=== PATIENT | female | born 1980 | race Caucasian/White ===

== ENCOUNTER → 2017-08-27 | Outpatient (CLI) | payer OTHER | END | disposition home or self-care (01) | LOC: RADECHMAIN 12:55 | PROVIDERS: ATTEND Internal Medicine | DX: R00.2 Palpitations (principal) | CPT/HCPCS: 93270; 93271 ==

== ENCOUNTER 2018-12-30 14:53 | Emergency (ER) | payer OTHER ==
[2018-12-30 15:02] VITALS: TEMP 98.2
[2018-12-30] MEDS ORDERED: PROPARACAINE 0.5% OPHTH DROPS 15 ML BTL LEFT EYE STA (15:21)
--- NOTE | 2018-12-30 15:23 | ED ---
General Adult HPI - General Chief complaint: Eye Problems Stated complaint: Eye pain, headache Time Seen by Provider: 12/30/18 15:09 Source: patient, RN notes reviewed, old records reviewed Mode of arrival: ambulatory Limitations: no limitations - History of Present Illness Initial comments: 38 old female patient past medical history of hypertension presents to ED with 1 day of erythematous, painful left eye. Patient states that she woke up and noticed that she had some dry crust rim of eye. Patient additionally states that she does have some pain and irritation of her left eye. Patient states that she has had some eye watering. Patient denies all other complaints. Patient has chest pain, shortness breath, abdominal pain, nausea vomiting diarrhea, fever or chills. Systemic: Pt denies fatigue, myalgia, fever/chills, rash. Pt denies weakness, night sweats, weight loss. Neuro: Pt denies headache, visual disturbances, syncope or pre-syncope. HEENT: Pt denies otalgia, rhinorrhea, pharyngitis or notable lymphadenopathy. Cardiopulmonary: Pt denies chest pain, SOB, heart palpitations, dyspnea on exertion. Abdominal/GI: Pt denies abdominal pain, n/v/d. : Pt denies dysuria, burning w/ urination, frequency/urgency. Denies new onset urinary or bowel incontinence. MSK: Pt denies myalgia, loss of strength or function in extremities. Neuro: Pt denies new onset weakness, paresthesias. - Related Data Previous Rx's Medication Instructions Recorded Acetaminophen with Codeine 1 tab PO Q4H PRN #15 tab 02/29/16 [Tylenol w/codeine #3] Ondansetron Odt [Zofran Odt] 4 mg PO Q8HR PRN #12 tab 02/29/16 amLODIPine [Norvasc] 5 mg PO DAILY #15 02/29/16 Orphenadrine [Norflex] 100 mg PO Q12H #10 tablet.er 11/04/16 amLODIPine BESYLATE [Norvasc] 5 mg PO DAILY #30 tab 11/04/16 Erythromycin Ophth Oint [Romycin 1 applic BOTH EYES QID 7 Days #1 12/30/18 Ophth Oint] tube Allergies Allergy/AdvReac Type Severity Reaction Status Date / Time Penicillins Allergy Nausea & Verified 01/29/19 15:02 Vomiting Review of Systems ROS Statement: Those systems with pertinent positive or pertinent negative responses have been documented in the HPI. ROS Other: All systems not noted in ROS Statement are negative. Past Medical History Past Medical History: Hypertension Additional Past Medical History / Comment(s): back issues states "mass between L4 and L5", spinal stenosis History of Any Multi-Drug Resistant Organisms: None Reported Past Surgical History: Appendectomy, Section, Cholecystectomy Additional Past Surgical History / Comment(s): nose, uterine ablasion Past Psychological History: No Psychological Hx Reported Smoking Status: Current every day smoker Past Alcohol Use History: None Reported Past Drug Use History: None Reported General Exam - General Exam Comments Initial Comments: Constitutional: NAD, AOX3, Pt has pleasant affect. HEENT: NC/AT, trachea midline, neck supple, no lymphadenopathy. Posterior pharynx non erythematous, without exudates. External ears appear normal, without discharge. Mucous membranes moist. Eyes PERRLA, EOM intact. Mild injection of L eye, no purulent drainge noted. No uptake noted on fluorescence stain and Wood's lamp exam. No pallor noted. Cardiopulmonary: RRR, no murmurs, rubs or gallops, no JVD noted. Lungs CTAB in anterior and posterior logan. No peripheral edema. Abdominal exam: Abdomen soft and non-distended. Abdomen non-tender to palpation in all 4 quadrants. Bowel sounds active in LLQ. No hepatosplenomegaly. No ecchymosis Neuro: CN II-XII intact. No nuchal rigidity. No focal deficit or facial droop. MSK: No posterior calf tenderness bilaterally, homans sign negative bilaterally. Posterior tibialis and radial pulse +2 bilaterally. Sensation intact in upper and lower extremities. Full active ROM in upper and lower extremities, 5/5 stregnth. Limitations: no limitations Course Vital Signs 12/30/18 12/30/18 14:59 16:26 Temperature 98.2 F Pulse Rate 97 84 Respiratory 20 18 Rate Blood Pressure 176/103 151/88 O2 Sat by Pulse 95 99 Oximetry Medical Decision Making - Medical Decision Making 38 old female patient past medical history of hypertension presents to ED with 1 day of erythematous, painful left eye. Patient states that she woke up and noticed that she had some dry crust rim of eye. Patient additionally states that she does have some pain and irritation of her left eye. Patient states that she has had some eye watering. Patient denies all other complaints. Pt had mild hypertension upon presentation likely 2/2 pain, improved after proparicaine and exam. Physical exam displayed: CN II-XII intact. No nuchal rigidity. No focal deficit or facial droop. Eyes PERRLA, EOM intact. Mild injection of L eye, no purulent drainge noted. No uptake noted on fluorescence stain and Wood's lamp exam. Patient diagnosed with conjunctivitis. Patient prescribed topical erythromycin antibiotics use for 1 week. Patient to follow up with primary care provider in 1-2 days. Patient to return to ED if new signs or symptoms develop or if condition worsens in anyway. Case discussed in depth with and seen by Dr. Hammer. Disposition Clinical Impression: Conjunctivitis Disposition: HOME SELF-CARE Condition: Stable Instructions (If sedation given, give patient instructions): Conjunctivitis (ED ) Additional Instructions: Patient to adhere to previously discussed treatment plan and will take medication(s) as directed. Patient to follow up with PCP in 1-2 days. Patient to return to ED if symptoms do not improve. Prescriptions: Erythromycin Ophth Oint [Romycin Ophth Oint] 1 applic BOTH EYES QID 7 Days #1 tube Is patient prescribed a controlled substance at d/c from ED?: No Referrals: Angel Mcgee MD [Primary Care Provider] - 1-2 days Time of Disposition: 16:33
[2018-12-30 16:26] VITALS: BP 151/88; PULSE 84; RESP 18
== END 2018-12-30 16:35 | disposition home or self-care (01) ==
LOC: EC 14:53
DX: H10.9 Unspecified conjunctivitis (principal); I10 Essential (primary) hypertension; F17.200 Nicotine dependence, unspecified, uncomplicated; Z88.0 Allergy status to penicillin
CPT/HCPCS: 99284

== ENCOUNTER → 2019-06-17 | Outpatient (CLI) | payer OTHER ==
[2019-06-17 11:35] LABS: Basophils # (A) 0.1 k/uL (0-0.2); Basophils % (A) 0 %; Eosinophils # (A) 0.2 k/uL (0-0.7); Eosinophils % (A) 2 %; HCT 39.6 % (34.0-46.0); HGB 13.2 gm/dL (11.4-16.0); Lymphocytes # (A) 2.4 k/uL (1.0-4.8); Lymphocytes % (A) 23 %; MCH 29.6 pg (25.0-35.0); MCHC 33.3 g/dL (31.0-37.0); MCV 88.9 fL (80.0-100.0); Mean Platelet Volume 7.2; Monocytes # (A) 0.5 k/uL (0-1.0); Monocytes % (A) 5 %; Neutrophils # (A) 7.2 k/uL (1.3-7.7); Neutrophils % (A) 69 %; Platelet Count 275 k/uL (150-450); RBC 4.45 m/uL (3.80-5.40); RDW 14.7 % (11.5-15.5); WBC 10.4 k/uL (3.8-10.6)
[2019-06-17 15:24] LABS: Erythrocyte Sedimentation Rate 29 mm/hr (0-20)
[2019-06-17 16:25] LABS: LDL Cholesterol, Direct 104.2 mg/dL (0.0-129.0)
[2019-06-17 16:31] LABS: C Reactive Protein 1.3 mg/dL (0.0-0.8); Cholesterol 141 mg/dL (0-200); Glucose 95 mg/dL (70-110)
[2019-06-17 16:34] LABS: DHEA Sulfate 124.8 ug/dL (26.0-430.0)
[2019-06-17 16:36] LABS: Sex Horm Bind Glob 47.4 nmol/L (10.84-180.00)
[2019-06-17 16:49] LABS: HCG,Quantitative Serum <2.0 mIU/mL; Insulin Level 64.3 mIU/mL (3.0-25.0)
[2019-06-19 12:08] LABS: Growth Hormone, Human 0.3 ng/mL (<10)
== END | disposition home or self-care (01) ==
LOC: LABWHC1 10:41
PROVIDERS: ATTEND Dermatology
DX: L68.0 Hirsutism (principal); D48.5 Neoplasm of uncertain behavior of skin; L73.2 Hidradenitis suppurativa; L70.0 Acne vulgaris; E28.2 Polycystic ovarian syndrome; L91.8 Other hypertrophic disorders of the skin
CPT/HCPCS: 82157; 84439; 83498; 84305; 85652; 82533; 83001; 82465; 83718; 82670; 83003; 82947; 84443; 85025; 86140; 84702; 84146; 84402; 82627; 83525; 83721; 84270; 84403; 36415; G0480; 80327

== ENCOUNTER → 2019-07-27 | Outpatient (CLI) | payer OTHER ==
[2019-07-27 13:34] VITALS: BP 166/106; PULSE 85; RESP 16; TEMP 98.8; BMI 54.7
--- NOTE | 2019-07-27 15:53 | P.HPBAR ---
Bariatric H&P - History & Physicial H&P Date: 07/27/19 History & Physicial: Visit/CC: INITIAL VISIT Patient initial contact: Initial weight: 158.445 kg Initial weight in pounds: 349.31 Height: 5 ft 7 in Initial BMI: 54.7 Last weight: Current weight: 158.445 kg Current weight in pounds: 349.31 Current BMI: 54.7 [place] body weight (based on NIH guidelines): 61.235 kg Excess body weight loss: 0.0% The patient is a 39 year-old F who presents for Bariatric Assessment. Patient presents for initial visit today. Patient is morbidly obese with BMI 55. She is interested in the sleeve gastrectomy. Past Medical History Past Medical History: Hypertension Additional Past Medical History / Comment(s): back issues states "mass between L4 and L5", spinal stenosis History of Any Multi-Drug Resistant Organisms: None Reported Past Surgical History: Appendectomy, Section, Cholecystectomy Additional Past Surgical History / Comment(s): nose, uterine ablasion Past Anesthesia/Blood Transfusion Reactions: No Reported Reaction Past Psychological History: No Psychological Hx Reported Smoking Status: Current every day smoker Past Alcohol Use History: None Reported Past Drug Use History: None Reported Surgical - Exam Vital Signs Temp Pulse Resp BP 98.8 F 85 16 166/106 07/27/19 13:30 07/27/19 13:30 07/27/19 13:30 07/27/19 13:30 - General well developed, well nourished, no distress - Respiratory normal expansion - Cardiovascular Rhythm: regular - Abdomen Abdomen: soft, non tender Bariatric Assessment & Plan Plan: Morbid obesity, BMI 55. Patient was scheduled for EGD. Patient is an excellent understanding of the sleeve gastrectomy. We went over the risks and benefits of procedure. She'll follow-up in the clinic after EGD is performed. Bariatric Checklist Checklist: Plan: Checklist: EGD: 1. Hiatal hernia: 2. H. Pylori: HgbA1c: Vitamin D: Smoking: Current every day smoker Primary care physician referral: DR. TALLEY Psychiatry clearance: Cardiology clearance: Sleep study: Diet journal: VTE risk score: VTE risk level: Rehab needs at discharge:
== END ==
LOC: BARWHC3 12:45
PROVIDERS: ATTEND Surgery
DX: E66.01 Morbid (severe) obesity due to excess calories (principal); Z68.43 Body mass index [BMI] 50.0-59.9, adult; Z90.49 Acquired absence of other specified parts of digestive tract; F17.200 Nicotine dependence, unspecified, uncomplicated
CPT/HCPCS: 99201

== ENCOUNTER → 2019-07-31 | Outpatient (CLI) | payer OTHER ==
[2019-07-31 13:45] LABS: HCT 42.6 % (34.0-46.0); HGB 14.2 gm/dL (11.4-16.0); MCH 30.4 pg (25.0-35.0); MCHC 33.4 g/dL (31.0-37.0); MCV 91.1 fL (80.0-100.0); Mean Platelet Volume 6.7; Platelet Count 274 k/uL (150-450); RBC 4.67 m/uL (3.80-5.40); RDW 13.6 % (11.5-15.5); WBC 9.7 k/uL (3.8-10.6)
[2019-07-31 18:41] LABS: African American GFR (CKD) 109.2 (60.0-200.0); Albumin 4.2 g/dL (3.80-4.90); Albumin/Globulin Ratio 1.83 (1.60-3.17); Anion Gap 7.5 mmol/L (4.00-12.00); BUN/Creat Ratio 13.75 Ratio (12.00-20.00); Calcium 9.4 mg/dL (8.7-10.3); Carbon Dioxide 30.5 mmol/L (21.6-31.8); Globulin 2.3 g/dL (1.6-3.3); Potassium 3.8 mmol/L (3.5-5.5); Total Bilirubin 0.4 mg/dL (0.2-1.2); Total Protein 6.5 g/dL (6.2-8.2)
[2019-07-31 19:42] LABS: Folate, Serum 13.5 ng/mL
[2019-07-31 23:37] LABS: Hemoglobin A1C 5.4 % (4.0-6.0)
== END | disposition home or self-care (01) ==
LOC: LABWHC1 13:04
PROVIDERS: ATTEND Surgery
DX: E11.9 Type 2 diabetes mellitus without complications (principal); I11.9 Hypertensive heart disease without heart failure; G47.30 Sleep apnea, unspecified
CPT/HCPCS: 36415; 80053; 82607; 82746; 83036; 84425; 85027; 93005

== ENCOUNTER 2019-08-18 08:40 | Day surgery (SDC) | payer OTHER ==
[2019-08-14 13:27] VITALS: BMI 54.6
[~2019-08-18 08:40] MED LIST: LACTATED RINGERS 1,000 ML IV SCH; LIDOCAINE 1% 20 ML VIAL (10MG/ML) FOR IV START INTRADERMA PRN
[2019-08-18 09:01] VITALS: RESP 16; TEMP 97.6
[2019-08-18] MEDS ORDERED: LIDOCAINE 1% INJ 10MG/ML (20 ML MDV) ONE (09:41)
[2019-08-18] MEDS ORDERED: PROPOFOL 10 MG/ML 20 ML VIAL IV ONE (09:41)
--- NOTE | 2019-08-18 09:50 | P.GSHP ---
History of Present Illness H&P Date: 08/18/19 Chief Complaint: Morbid obesity, GERD This a 39-year-old female who is morbidly obese. Her BMI is 55. Patient undergo workup for sleeve gastrectomy. She does today for EGD. She's had history of GERD. Past Medical History Past Medical History: Hypertension Additional Past Medical History / Comment(s): back issues states "mass between L4 and L5", spinal stenosis History of Any Multi-Drug Resistant Organisms: None Reported Past Surgical History: Appendectomy, Section, Cholecystectomy, Uterine Ablation Additional Past Surgical History / Comment(s): nose Past Anesthesia/Blood Transfusion Reactions: No Reported Reaction Additional Past Anesthesia/Blood Transfusion Reaction / Comment(s): no hx blood transfusion Smoking Status: Current every day smoker - Past Family History Mother Family Medical History: No Reported History Medications and Allergies Home Medications Medication Instructions Recorded Confirmed Type Ibuprofen [Motrin] 400 mg PO Q6H PRN 07/27/19 08/14/19 History Losartan [Cozaar] 25 mg PO QAM 07/27/19 08/18/19 History Chlorthalidone [Hygroton] 25 mg PO DAILY 08/14/19 08/18/19 History Allergies Allergy/AdvReac Type Severity Reaction Status Date / Time Penicillins AdvReac Nausea & Verified 08/18/19 08:52 Vomiting Surgical - Exam Vital Signs Temp Pulse Resp BP Pulse Ox 97.6 F 88 16 136/65 97 08/18/19 09:00 08/18/19 09:00 08/18/19 09:00 08/18/19 09:00 08/18/19 09:00 - General well developed, well nourished, no distress - Eyes PERRL - ENT normal pinna - Neck no masses - Respiratory normal expansion - Cardiovascular Rhythm: regular - Abdomen Abdomen: soft, non tender Assessment and Plan Assessment: GERD Morbid obesity, BMI 55 We'll perform EGD.
--- NOTE | 2019-08-18 09:56 | P.OP ---
Date of Procedure: 08/18/19 Preoperative Diagnosis: Morbid obesity, BMI 55 GERD Postoperative Diagnosis: Antral gastritis Procedure(s) Performed: EGD Anesthesia: MAC Surgeon: Angel Mukherjee Pathology: other (Antrum) Condition: stable Disposition: PACU Description of Procedure: The patient's placed on the endoscopy table lateral position. She received IV sedation. The gastroscope placed oropharynx and then into the esophagus and stomach. Scope some placed through the pylorus. The first and second portion of the duodenum. Normal. Scope was then brought back the antrum this. Mildly inflamed. A biopsies performed. The scope was then retroflexed and the remainder of the stomach appeared normal. There was no significant hiatal hernia. The GE junction was at 40 cm.. The distal esophagus appeared normal. The proximal esophagus. The scope was withdrawn for patient.
[2019-08-18 10:30] VITALS: BP 121/74; PULSE 86
== END 2019-08-18 10:40 | disposition home or self-care (01) ==
LOC: ORWHC2ENDO 08:40
PROVIDERS: ATTEND Surgery
DX: K29.50 Unspecified chronic gastritis without bleeding (principal); K21.9 Gastro-esophageal reflux disease without esophagitis; E66.01 Morbid (severe) obesity due to excess calories; Z68.43 Body mass index [BMI] 50.0-59.9, adult; I10 Essential (primary) hypertension; Z87.891 Personal history of nicotine dependence; M53.86 Other specified dorsopathies, lumbar region; M48.061 Spinal stenosis, lumbar region without neurogenic claudication; Z90.49 Acquired absence of other specified parts of digestive tract; Z79.899 Other long term (current) drug therapy; Z88.0 Allergy status to penicillin
CPT/HCPCS: 81025; 88305; 43239; J2001; J2704

== ENCOUNTER → 2019-10-05 | Outpatient (CLI) | payer OTHER ==
[2019-10-05 14:54] VITALS: BP 167/98; PULSE 96; RESP 16; TEMP 97.7; BMI 54.6
--- NOTE | 2019-10-05 16:15 | P.HPBAR ---
Bariatric H&P - History & Physicial H&P Date: 10/05/19 History & Physicial: Visit/CC: egd F/U Patient initial contact: Initial weight: 158.445 kg Initial weight in pounds: 349.31 Height: 5 ft 7 in Initial BMI: 54.7 Last weight: Current weight: 158.304 kg Current weight in pounds: 349.00 Current BMI: 54.6 [place] body weight (based on NIH guidelines): 61.235 kg Excess body weight loss: 0.1% The patient is a 39 year-old F who presents for Bariatric Assessment. Patient resents today for presurgical consultation. Her weight has remained stable. She is morbidly obese with BMI 55. Past Medical History Past Medical History: Hypertension Additional Past Medical History / Comment(s): back issues states "mass between L4 and L5", spinal stenosis History of Any Multi-Drug Resistant Organisms: None Reported Past Surgical History: Appendectomy, Section, Cholecystectomy, Uterine Ablation Additional Past Surgical History / Comment(s): nose Past Anesthesia/Blood Transfusion Reactions: No Reported Reaction Additional Past Anesthesia/Blood Transfusion Reaction / Comm: no hx blood knapp sfusion Past Psychological History: No Psychological Hx Reported Smoking Status: Current every day smoker Past Alcohol Use History: None Reported Additional Past Alcohol Use History / Comment(s): quit smoking Jul 02, 2019,start smoking at age 18,<1ppd Past Drug Use History: None Reported - Past Family History Mother Family Medical History: No Reported History Surgical - Exam Vital Signs Temp Pulse Resp BP 97.7 F 96 16 167/98 10/05/19 14:52 10/05/19 14:52 10/05/19 14:52 10/05/19 14:52 - General well developed, well nourished, no distress - Eyes PERRL - ENT normal pinna - Neck no masses - Respiratory normal expansion - Cardiovascular Rhythm: regular - Abdomen Abdomen: soft, non tender Bariatric Assessment & Plan Plan: Morbid obesity, BMI 55. Patient has an excellent understanding of the sleeve gastrectomy. We will over the risks and benefits of the surgery. She'll follow-up in 4 weeks. She will need to obtain insurance authorization prior to surgery. Bariatric Checklist Checklist: Plan: Checklist: EGD: 1. Hiatal hernia: 2. H. Pylori: HgbA1c: Vitamin D: Smoking: Current every day smoker Primary care physician referral: DR. TALLEY Psychiatry clearance: Cardiology clearance: Sleep study: Diet journal: VTE risk score: VTE risk level: Rehab needs at discharge:
== END | disposition home or self-care (01) ==
LOC: BARWHC3 13:41
PROVIDERS: ATTEND Surgery
DX: E66.01 Morbid (severe) obesity due to excess calories (principal); Z68.43 Body mass index [BMI] 50.0-59.9, adult; F17.200 Nicotine dependence, unspecified, uncomplicated; Z98.890 Other specified postprocedural states; Z90.49 Acquired absence of other specified parts of digestive tract
CPT/HCPCS: 99211

== ENCOUNTER → 2019-12-07 | Outpatient (CLI) | payer OTHER ==
[2019-12-07 13:30] VITALS: BP 177/100; PULSE 92; TEMP 98.8; BMI 53.8
--- NOTE | 2019-12-07 13:57 | P.HPBAR ---
Bariatric H&P - History & Physicial H&P Date: 12/07/19 History & Physicial: Visit/CC: sleeve consultation Patient initial contact: Initial weight: 158.445 kg Initial weight in pounds: 349.31 Height: 5 ft 7 in Initial BMI: 54.7 Last weight: Current weight: 156.036 kg Current weight in pounds: 344.00 Current BMI: 53.8 [place] body weight (based on NIH guidelines): 61.235 kg Excess body weight loss: 2.4% The patient is a 39 year-old F who presents for Bariatric Assessment. Patient presents today for presurgical consultation. She is finished 5 of her 6 scheduled visit with her family doctor. Patient's morbid obesity BMI 54. Past Medical History Past Medical History: Hypertension Additional Past Medical History / Comment(s): back issues states "mass between L4 and L5", spinal stenosis History of Any Multi-Drug Resistant Organisms: None Reported Past Surgical History: Appendectomy, Section, Cholecystectomy, Uterine Ablation Additional Past Surgical History / Comment(s): nose Past Anesthesia/Blood Transfusion Reactions: No Reported Reaction Additional Past Anesthesia/Blood Transfusion Reaction / Comm: no hx blood transfusion Past Psychological History: No Psychological Hx Reported Smoking Status: Current every day smoker Past Alcohol Use History: None Reported Additional Past Alcohol Use History / Comment(s): quit smoking Jul 02, 2019,start smoking at age 18,<1ppd Past Drug Use History: None Reported - Past Family History Mother Family Medical History: No Reported History Surgical - Exam Vital Signs Temp Pulse BP 98.8 F 92 177/100 12/07/19 13:11 12/07/19 13:11 12/07/19 13:11 - General well developed, well nourished, no distress - Eyes PERRL - ENT normal pinna - Neck no masses - Respiratory normal expansion - Cardiovascular Rhythm: regular Bariatric Assessment & Plan Plan: Morbid obesity, BMI 54. Patient has an excellent understanding of sleeve gastrectomy. One of the risks and benefits of procedure. She'll be scheduled after her next positioned follow-up visit. Bariatric Checklist Checklist: Plan: Checklist: EGD: 1. Hiatal hernia: 2. H. Pylori: HgbA1c: Vitamin D: Smoking: Current every day smoker Primary care physician referral: DR. TALLEY Psychiatry clearance: Cardiology clearance: Sleep study: Diet journal: VTE risk score: VTE risk level: Rehab needs at discharge:
== END | disposition home or self-care (01) ==
LOC: BARWHC3 12:48
PROVIDERS: ATTEND Surgery
DX: E66.01 Morbid (severe) obesity due to excess calories (principal); Z68.43 Body mass index [BMI] 50.0-59.9, adult; F17.200 Nicotine dependence, unspecified, uncomplicated; Z90.49 Acquired absence of other specified parts of digestive tract; Z98.890 Other specified postprocedural states
CPT/HCPCS: 99211

== ENCOUNTER → 2019-12-14 | Outpatient (CLI) | payer OTHER ==
[2019-12-14 09:43] VITALS: BMI 54.6
== END | disposition home or self-care (01) ==
LOC: BARWHC3 08:59
PROVIDERS: ATTEND Surgery
DX: E66.01 Morbid (severe) obesity due to excess calories (principal); Z68.43 Body mass index [BMI] 50.0-59.9, adult
CPT/HCPCS: 97804